=== PATIENT | male | born 1990 | race Caucasian/White ===

== ENCOUNTER 2017-08-07 14:55 | Emergency (ER) | payer OTHER ==
[~2017-08-07] VITALS: Ht 170.2 cm; Wt 70.3 kg
[2017-08-07 14:56] VITALS: BP 137/77
== END 2017-08-07 15:55 | disposition home or self-care (01) ==
LOC: ER 14:55
DX: S93.402A Sprain of unspecified ligament of left ankle, initial encounter (principal); J45.909 Unspecified asthma, uncomplicated; F17.210 Nicotine dependence, cigarettes, uncomplicated; F10.99 Alcohol use, unspecified with unspecified alcohol-induced disorder; X50.1XXA Overexertion from prolonged static or awkward postures, initial encounter; Y93.67 Activity, basketball; Y92.89 Other specified places as the place of occurrence of the external cause; Y99.8 Other external cause status